=== PATIENT | female | born 1990 | race Hispanic/Latino ===

== ENCOUNTER 2017-07-07 07:20 | Inpatient (IN) | payer MEDICAID, OTHER ==
[~2017-07-07] VITALS: Ht 165.1 cm; Wt 77.6 kg
[2017-07-07] MEDS ORDERED: LACTATED RINGERS 1000ML 1,000 ML IV PRN (07:32)
[2017-07-07] MEDS ORDERED: OXYTOCIN 10 USP UNITS/ML 20 UNIT in LACTATED RINGERS 1000ML 1,000 ML IV SCH (07:45)
[2017-07-07] MEDS ORDERED: OXYTOCIN-LR 20 UNITS/1000 ML 1,000 ML IV SCH (07:45)
[2017-07-07 07:56] LABS: HEMATOCRIT 38.7 % (36-48); MEAN CORPUSCULAR HEMOGLOBIN 30.8 pg (27.0-33.0); MEAN CORPUSCULAR VOLUME 90.4 fL (79-99); NUCLEATED RED BLOOD CELLS 0.4 % (0.0-0.19); PLATELET COUNT (AUTO) 317 K/uL (130-400); RED BLOOD CELL COUNT(AUTO) 4.28 MIL/uL (4.00-5.50); WHITE BLOOD COUNT (AUTO) 12.5 K/uL (4.8-10.8)
[2017-07-07 07:58] LABS: APPEARANCE,URINE Clear (CLEAR); BILIRUBIN,URINE Negative (NEGATIVE); COLOR,URINE Yellow (YELLOW); GLUCOSE, URINE (UA) Negative (NEGATIVE); KETONES,URINE Negative (NEGATIVE); LEUKOCYTE ESTERASE ,URINE Negative (NEGATIVE); NITRATE,URINE Negative (NEGATIVE); OCCULT BLOOD,URINE Negative (NEGATIVE); PH,URINE 6.5 (5.0-8.0); PROTEIN,URINE Negative (NEGATIVE); UROBILINOGEN,URINE 0.2 mg/dL (0.2-1.0)
[2017-07-07 08:06] LABS: AMPHET/METH SCREEN,URINE NEGATIVE (NEGATIVE); BARBITURATE SCREEN, URINE NEGATIVE (NEGATIVE); BENZODIAZEPINES SCREEN,URINE NEGATIVE (NEGATIVE); CANNABINOID SCREEN,URINE NEGATIVE (NEGATIVE); COCAINE SCREEN,URINE NEGATIVE (NEGATIVE); OPIATE SCREEN,URINE NEGATIVE (NEGATIVE); PHENCYCLIDINE SCREEN,URINE NEGATIVE (NEGATIVE)
[2017-07-07] MEDS ORDERED: MEPERIDINE-PF 50 MG/ML SYG IVP PRN (08:45)
[2017-07-07] MEDS ORDERED: PROMETHAZINE HCL 25 MG/ML 1ML AMPULE IM PRN (08:45)
[2017-07-07] MEDS ORDERED: LACTATED RINGERS 1000ML 1,000 ML IV ONE ×2 (09:08→14:57)
[2017-07-07] MEDS ORDERED: OXYTOCIN 10 USP UNITS/ML ONE ×2 (09:09→14:58)
[2017-07-07] MEDS ORDERED: LIDOCAINE HCL 1% 20 ML VIAL ONE (09:10)
[2017-07-07] MEDS ORDERED: LANOLIN 30GM OINTMENT TP PRN (14:45)
[2017-07-07] MEDS ORDERED: BENZOCAINE/LANOLIN/ALOE VERA 60 ML AEROSOL TP PRN (14:45)
[2017-07-07] MEDS ORDERED: DIPH,PERTUSS(ACELL),TET VAC/PF 0.5 ML VIAL IM PRN (14:45)
[2017-07-07] MEDS ORDERED: WITCH HAZEL 1 PAD TP PRN (14:45)
[2017-07-07] MEDS ORDERED: MEASLES/MUMPS/RUBELLA VACCINE, LIVE 0.5 ML/VIAL SQ PRN (14:45)
[2017-07-07 16:15] VITALS: BP 112/78
[2017-07-07 20:00] VITALS: BP 111/55
[2017-07-07] MEDS: DOCUSATE SODIUM 100 MG CAP PO SCH (21:55)
[2017-07-08] MEDS: IBUPROFEN 800 MG TAB PO PRN ×2 (00:50→09:00)
[2017-07-08 00:51] VITALS: BP 121/91
[2017-07-08 04:38] VITALS: BP 92/50
[2017-07-08 06:09] LABS: HEPATITIS Bs ANTIGEN SCREEN P Negative (Negative)
[2017-07-08] MEDS: DOCUSATE SODIUM 100 MG CAP PO SCH (08:58)
[2017-07-08 12:27] VITALS: BP 130/74
== END 2017-07-08 14:50 | disposition home or self-care (01) | DRG 560 ==
LOC: EDH 07:20 → OBSVTOIN 07:31 → LDH 07:31 → WSH 16:10
PROVIDERS: ADMIT Specialist; ATTEND Specialist
PROC: 10E0XZZ Delivery of Products of Conception, External Approach (ICD-10-PCS; principal; 2017-07-07)
PROC: 0HQ9XZZ Repair Perineum Skin, External Approach (ICD-10-PCS; 2017-07-07)
PROC: 3E033VJ Introduction of Other Hormone into Peripheral Vein, Percutaneous Approach (ICD-10-PCS; 2017-07-07)
PROC: 10907ZC Drainage of Amniotic Fluid, Therapeutic from Products of Conception, Via Natural or Artificial Opening (ICD-10-PCS; 2017-07-07)
PROC: 3E0234Z Introduction of Serum, Toxoid and Vaccine into Muscle, Percutaneous Approach (ICD-10-PCS; 2017-07-07)
PROC: 3E0134Z Introduction of Serum, Toxoid and Vaccine into Subcutaneous Tissue, Percutaneous Approach (ICD-10-PCS; 2017-07-07)
DX: O69.1XX0 Labor and delivery complicated by cord around neck, with compression, not applicable or unspecified (principal); O99.344 Other mental disorders complicating childbirth; F41.9 Anxiety disorder, unspecified; Z37.0 Single live birth; O70.0 First degree perineal laceration during delivery; Z3A.39 39 weeks gestation of pregnancy; Z23 Encounter for immunization
CPT/HCPCS: 36415; 80305; 81003; 85027; 86592; 86850; 86900; 86901; 87340; 90707; 90715; A4351; J2175; J2550; J2590; J7120

== ENCOUNTER 2018-02-04 12:18 | Emergency (ER) | payer MEDICAID, OTHER | END 2018-02-04 14:45 | disposition left against medical advice (07) | LOC: EDH 12:18 | DX: Z53.21 Procedure and treatment not carried out due to patient leaving prior to being seen by health care provider (principal); F32.9 Major depressive disorder, single episode, unspecified; Z90.49 Acquired absence of other specified parts of digestive tract ==